=== PATIENT | male | born 1970 ===

== ENCOUNTER 2022-06-05 09:56 | Emergency (ER) | payer BC, SELFPAY ==
[2022-06-05] VITALS (20 sets, daily range): BP systolic 113–150; BP diastolic 67–105; PULSE 76–107; RESP 15–96; TEMP 36.3; O2SAT 12–98
--- NOTE | ~2022-06-05 | CT_ITS ---
CT of the Abdomen and Pelvis: Indication: Abdominal pain Technique: 2.5 mm axial scans were obtained through the abdomen and pelvis following intravenous adm inistration of 100 cc of Omnipaque 350. Dose reduction technique was used on this scan by utilizing a utomated exposure control and iterative reconstruction technique. The dose-length product (DLP) was 5 15.37 mGy-cm. Findings: Scans through the lung bases are unremarkable. Diffuse fatty infiltration of the liver noted. The spleen, pancreas, gallbladder, adrenals and kidney s are within normal limits. There are atherosclerotic calcifications of the aorta. No lymphadenopath y. No bowel obstruction or bowel wall thickening. There is no evidence to suggest acute appendicitis. Images through the pelvis were performed. Urinary bladder unremarkable. Prostate gland and seminal ve sicles are unremarkable. No ascites. Impression: Diffuse fatty infiltration of the liver. Reviewed, dictated and finalized at location . Impression: Diffuse fatty infiltration of the liver.
--- NOTE | 2022-06-05 11:33 | PC.NURSE ---
Patient and mother both shared with this RN that patient has made suicidal comments with a plan.
[2022-06-05 11:43] LABS: Basophils Absolute Auto 0.1 K/mm3 (0.0-0.1); Basophils Percent Auto 1.1 % (0.2-1.2); Eosinophils Percent Auto 0.6 % (0-4.4); Hematocrit 38.9 % (42.0-52.0); Hemoglobin 13.2 g/dL (14.0-18.0); Immature Granulocyte Absolute 0.02 K/mm3 (0.00-0.031); Immature Granulocyte Percent A 0.3 % (0-0.5); Lymphocytes Absolute Auto 1.22 K/mm3 (0.9-3.2); Lymphocytes Percent Auto 18.5 % (18.3-44.2); Mean Corpuscular HGB Conc 33.9 g/dl (32-36); Mean Corpuscular Hemoglobin 33.3 pg (26-34); Mean Corpuscular Volume 98.2 fl (80-100); Monocytes Absolute Auto 0.8 K/mm3 (0.1-0.6); Monocytes Percent Auto 12.3 % (2.6-8.5); Neutrophils Absolute Auto 4.4 K/mm3 (1.3-6.7); Neutrophils Percent Auto 67.2 % (45.5-73.1); Platelet Count Result 181 k/mm3 (150-375); Red Blood Count 3.96 M/mm3 (4.6-6.20); Red Cell Distribution Width 12.3 % (11.5-14.5); White Blood Count 6.6 K/mm3 (4.5-10.0)
[2022-06-05 11:50] LABS: Alanine Aminotransferase 294 U/L (6-50); Albumin Level 4.7 g/dL (3.5-5.1); Alkaline Phosphatase 62 U/L (38-126); Anion Gap 11 mmol/L (8-16); Aspartate Amino Transferase 324 U/L (17-59); Bilirubin,Total 0.7 mg/dL (0.2-1.3); Blood Urea Nitrogen 15 mg/dL (9-20); Calcium 8.6 mg/dL (8.4-10.2); Carbon Dioxide 29 mmol/L (22-30); Chloride 101 mmol/L (98-107); Estimated CRCL calculation 90 ml/min; Estimated Glomerular Filt Rate > 60; Glucose 109 mg/dL (65-110); Lipase 265 U/L (23-300); Sodium 141 mmol/L (137-145)
[2022-06-05] MEDS: ONDANSETRON INJ 4 MG/2 ML VIAL IV PUSH ×3 (12:08→18:10)
[2022-06-05] MEDS: SODIUM CHLORIDE 0.9% IV 1,000 ML 999 ML IV CONT (12:08)
[2022-06-05 12:34] LABS: Ethanol 419 mg/dL (<10)
[2022-06-05 12:51] LABS: SARS-CoV-2 RNA PCR Negative
--- NOTE | 2022-06-05 13:16 | ED.ABDPAIN ---
HPI - Abdominal Pain General Chief Complaint: Abdominal Pain <Herman Mcnulty PA-C - Last Filed: 06/05/22 19:10> Stated Complaint: abd pain <Herman Mcnulty PA-C - Last Filed: 06/05/22 19:10> Time Seen by Provider: 06/05/22 11:46 <Herman Mcnulty PA-C - Last Filed: 06/05/22 19:10> Source: patient <JUAN Denny Last Filed: 06/05/22 19:10> Mode of arrival: ambulatory <JUAN Denny Last Filed: 06/05/22 19:10> Limitations: no limitations <Herman Mcnulty PA-C - Last Filed: 06/05/22 19:10> History of Present Illness HPI narrative: This is a 51-year-old male who presents to the ED with chief complaint of abdominal pain. Generalized in nature. Patient also reports anxiety and depression. Reports he had 2 glasses of wine and 4 Xanax prior to arrival. States he drank because he was feeling depressed. He repeatedly denies any suicidal or homicidal ideation to me. Denies any plan. Reports his abdominal pain is all over. Also reports nausea. Denies fevers, chills, chest pain, shortness of breath. Denies any past attempts for suicide. Reports no firearms in the home.. Patient's and his mother are here with him today and they both verbalized to me that he has told them he wants to commit suicide by hanging himself. <JUAN Denny Last Filed: 06/05/22 19:10> Related Data Allergies/Adverse Reactions: Allergies Allergy/AdvReac Type Severity Reaction Status Date / Time Penicillins Allergy Mild Unknown Verified 06/05/22 11:28 <JUAN Denny Last Filed: 06/05/22 19:10> Review of Systems Review of Systems: CONSTITUTIONAL: Denies fever, chills, or sweats. EYES: Denies visual changes, redness, or discharge. ENT: Denies rhinorrhea, congestion, sore throat, or otalgia. CARDIOVASCULAR: Denies chest pain, palpitations, or edema. RESPIRATORY: Denies cough or dyspnea. GASTROINTESTINAL: See HPI GENITOURINARY: Denies dysuria or hematuria. SKIN: Denies rash or itching. MUSCULOSKELETAL: Denies back pain, joint pain, or myalgia. NEUROLOGIC: Denies headache, numbness, dizziness, or weakness. PSYCHIATRIC: See HPI <JUAN Denny Last Filed: 06/05/22 19:10> [facility] Social History Social History: Social History Substance use type: prescription drug <JUAN Denny Last Filed: 06/05/22 19:10> Exam Narrative: GENERAL: Sleeping, clinically intoxicated when aroused. HEAD: Normocephalic, atraumatic. EYES: PERRLA and EOMI. ENT: Nares clear, no rhinorrhea or epistaxis. Mucous membranes moist. Oropharynx without tonsillar hypertrophy exudate or other lesions. NECK: Supple. No adenopathy or masses. CHEST: No respiratory distress. Clear to auscultation. No wheezes rales or rhonchi HEART: Regular rate and rhythm. No murmur heard. Normal peripheral pulses. ABDOMEN: Soft, nontender, nondistended, normal active bowel sounds. EXTREMITIES: Normal range of motion. No edema. SKIN: Warm, dry, no rash. NEURO: Alert and oriented x3. No focal deficits. No tremors on exam. PSYCH: Normal mood, flat affect. No HI. Again denies suicidal ideation to me. <Herman Mcnulty PA-C - Last Filed: 06/05/22 19:10> Course Course Emergency Course: Reevaluation 1814: RN reports pt shaking with tremors. CIWA score of 18. 1mg of ativan ordered <Herman Mcnulty PA-C - Last Filed: 06/05/22 19:10> Reevaluation 1814: RN reports pt shaking with tremors. CIWA score of 18. 1mg of ativan ordered Signed out at shift change pending sobriety and crisis evaluation. Patient is still intoxicated, did require several doses of Ativan. Abdomen/Pelvis CT was ordered given worsening abdominal pain and tenderness and elevated liver enzymes; negative for acute process. Alcohol at 0224 is .085. Patient denies history of withdrawal seizures; sx transiently improved after ativan. Crisis was called after patient clinically sober. Signed out to Dr. Castellon at shift change pending cri
[2022-06-05 13:18] LABS: Appearance Urine Clear (Clear); Bacteria Urine None Seen /hpf; Bilirubin Urine Negative (Negative); Blood Urine Negative (Negative); Color Urine Yellow (Yellow); Glucose Urine UA Negative (Negative); Ketones Urine Trace mg/dL (Negative); Leukocyte Esterase Ur Negative LEU/UL (Negative); Nitrate Urine Negative (Negative); Non Pathogenic Casts 0-2; Protein Urine Trace mg/dL (Negative); RBC Urine 0-2 /hpf (0-2); Specific Grav Ur 1.014 (1.001-1.035); Squamous Epithelial Cell Urine None seen /hpf (Few); WBC Urine 0-5 /hpf; pH Urine 5.5 (5.0-9.0)
[2022-06-05 13:26] LABS: Add Urine Microscopic? YES
[2022-06-05 13:36] LABS: Amphetamine Screen Urine Negative (Negative); Barbiturate Screen Urine Negative (Negative); Benzodiazepines Screen Urine Positive (Negative); Cannabinoid Screen Urine Negative (Negative); Cocaine Screen Urine Negative (Negative); Methadone Screen Urine Negative (Negative); Opiate Screen Urine Negative (Negative); Phencyclidine Screen Urine Negative (Negative)
--- NOTE | 2022-06-05 18:12 | PC.NURSE ---
ED PA made aware of patient's CIWA.
[2022-06-05] MEDS: LORazepam INJ (*CRX) 2 MG/ML VIAL 1 MG IV PUSH ×2 (18:25→21:20)
[2022-06-05] MEDS: METOCLOPRAMIDE HCL INJ 10 MG/2 ML VIAL IV PUSH (19:50)
[2022-06-05] MEDS: diphenhydrAMINE HCl INJ 50 MG/ML VIAL 25 MG IV PUSH (19:50)
[2022-06-05 22:51] LABS: Ethanol 175 mg/dL (<10)
[2022-06-06] VITALS (9 sets, daily range): BP systolic 103–152; BP diastolic 71–94; PULSE 94–126; RESP 12–32; O2SAT 96–100
[2022-06-06 02:47] LABS: Ethanol 85 mg/dL (<10)
[2022-06-06] MEDS: LORazepam INJ (*CRX) 2 MG/ML VIAL 1 MG IV PUSH (04:32)
[2022-06-06 04:36] LABS: Ethanol 42 mg/dL (<10)
[2022-06-06] MEDS: FAMOTIDINE 20 MG/2 ML VIAL IV PUSH (04:41)
== END 2022-06-06 07:43 | disposition home or self-care (01) ==
PROVIDERS: Emergency Medicine; Physician Assistant; Emergency Provider Emergency Medicine; PCP Family Medicine
DX: F10.239 Alcohol dependence with withdrawal, unspecified (principal); Y90.8 Blood alcohol level of 240 mg/100 ml or more; Z20.822 Contact with and (suspected) exposure to COVID-19; K76.0 Fatty (change of) liver, not elsewhere classified
CPT/HCPCS: 36415; 74177; 80053; 80307; 81001; 83690; 84443; 85025; 96361; 96374; 96375; 96376; 99284; J1200; J2060; J2405; J2765; J7030; Q9967; U0003; U0005